=== PATIENT | female | born 1985 | race Caucasian/White ===

== ENCOUNTER 2016-11-10 19:31 | Emergency (ER) | payer OTHER ==
[~2016-11-10] VITALS: Ht 170.2 cm; Wt 108.6 kg
[~2016-11-10 19:31] MED LIST: MICRONOR0.35 MG PO; MOTRIN800 MG PO; PHENTERMINE HCL PO
[2016-11-10 21:48] LABS: HEMATOCRIT 40.5 % (36.0-46.0); MCH 29.7 PG (29.0-34.0); MCHC 34.3 G/DL (30.0-36.0); MCV 86.5 FL (83-99); MEAN PLAT.VOLUME 11.3 uM^3 (9.5-12.4); PLATELET COUNT 144 K/uL (156-360); RBC DIS.WIDTH-SD 40.5 % (39-53); RED BLOOD COUNT 4.68 M/uL (3.80-5.20); WHITE BLOOD COUNT 6.8 K/uL (4.1-10.2)
[2016-11-10 21:58] LABS: CHLORIDE 103 mEq/L (99-109); POTASSIUM 3.9 mEq/L (3.7-5.4); SODIUM 138 mEq/L (136-147)
[2016-11-10 22:00] LABS: GLUCOSE 113 mg/dL (70-99)
[2016-11-10 22:01] LABS: ANION GAP 12 MEQ/L (2-14)
[2016-11-10 22:04] LABS: GFR ESTIMATE (CALCULATED) > 59 mL/min/
[2016-11-10 22:05] LABS: UREA NITROGEN (BUN) 10 mg/dL (9-23)
[2016-11-10 22:12] LABS: QUANTITATIVE HCG < 4.0 MIU/ML
[2016-11-10 22:17] LABS: INTERNAL CONTROL VALID? YES; MONOSPOT (MONONUCLEOSIS SEROL) NEGATIVE
[2016-11-10] MEDS ORDERED: ZITHROMAX Z-PA250 MG PO (22:26)
[2016-11-10] MEDS ORDERED: MEDROL DOSEPAK4 MG PO (22:26)
[2016-11-10 22:47] VITALS: BP 132/86
== END 2016-11-10 22:47 | disposition home or self-care (01) ==
LOC: EME 19:31
PROVIDERS: Physician Assistant
DX: R59.0 Localized enlarged lymph nodes (principal); B34.9 Viral infection, unspecified
CPT/HCPCS: 80048; 84702; 85027; 86308; 87651 90; 99281; 99284

== ENCOUNTER 2018-04-13 13:02 | Emergency (ER) | payer OTHER, BC ==
[~2018-04-13] VITALS: Ht 170.2 cm; Wt 110.4 kg
[~2018-04-13 13:02] MED LIST changes: +MEDROL DOSEPAK4 MG PO; +ZITHROMAX Z-PA250 MG PO
[2018-04-13 13:16] VITALS: BP 120/86
== END 2018-04-13 14:22 | disposition home or self-care (01) ==
LOC: EME 13:02
PROC: 2W3KX1Z Immobilization of Left Finger using Splint (ICD-10-PCS; principal; 2018-04-13)
DX: S60.222A Contusion of left hand, initial encounter (principal); S63.92XA Sprain of unspecified part of left wrist and hand, initial encounter; W22.09XA Striking against other stationary object, initial encounter; Y99.0 Civilian activity done for income or pay
CPT/HCPCS: 73130; 99281; 99283